=== PATIENT | female | born 1960 | race Caucasian/White ===

== ENCOUNTER → 2018-04-29 | Outpatient (CLI) | payer MEDICARE ==
--- NOTE | 2018-04-29 15:54 | Diagnostic Imaging Report ---
PROCEDURE:TRANSVAGINAL ULTRASOUND COMPARISON:None. INDICATIONS:PELVIC PAIN/PRESSURE, the patient is status post hysterectomy. TECHNIQUE: Grayscale transverse and sagittal transabdominal and transvaginal images were obtained of the pelvis. Transvaginal imaging was medically necessary to better evaluate the adnexa. FINDINGS: 58 year-old female patient A2 status post hysterectomy 20 years ago. Exam limited by patient's large body habitus and overlying bowel gas UTERUS: Absent. 0.4 x 0.3 x 0.5 cm echogenic shadowing focus at the vaginal cuff, likely representing a calcification or phlebolith. RIGHT OVARY: Not visualized. LEFT OVARY: Not visualized. There is no free fluid within the pelvis. No adnexal masses are identified. CONCLUSION: 1. Limited exam, as described above. 2. Ovaries could not be visualized. No adnexal masses are noted. Abraham Solis M.D. Dictated by: Abraham Solis M.D. on 04/29/2018 at 15:59 Electronically approved by: Abraham Solis M.D. on 04/29/2018 at 15:59
== END ==
LOC: US 14:24
PROVIDERS: ATTEND Specialist
DX: R10.2 Pelvic and perineal pain (principal)
CPT/HCPCS: 76830